=== PATIENT | male | born 1940 | race Two or more races ===

== ENCOUNTER 2022-05-16 08:25 | Inpatient (IN) | payer MEDICARE ==
[~2022-05-16] VITALS: Ht 182.9 cm; Wt 76.2 kg
--- NOTE | 2022-05-16 08:39 | NUR ---
BIB RA 88 FROM [facility] FOR LOW O2 SAT, PT STATED THAT HE WOKE UP THIS MORNING AND FELT LIKE A BOLT OF LIGHTENING HIT HIS CHEST, NONRADIATING DENIES ANY PAIN AT THIS MOMENT. PT SATTING AT 90% ON ROOM AIR, PLACED ON 2L NASAL CANULA, SATTING AT 94%. ATTACHED TO MONITOR, WARM BLANKET PROVDIED. AWAITING MD ORDERS.
--- NOTE | 2022-05-16 08:42 | NUR ---
AT BEDSIDE FOR EVAL.
--- NOTE | 2022-05-16 08:44 | NUR ---
IV ESTABLISHED R AC 20G. LABS COLLECTED AND SENT. EKG DONE AT BEDSIDE.
--- NOTE | 2022-05-16 08:58 | NUR ---
COVID TEST COLLECTED AND SENT
[2022-05-16] MEDS ORDERED: LORAZEPAM 0.5 MG TABLET ONE (08:59)
[2022-05-16] MEDS ORDERED: LORAZEPAM 1 MG TABLET PO ONE (09:00)
[2022-05-16 09:10] LABS: BASOPHILS # (AUTO) 0.1 K/uL (0.0-0.2); BASOPHILS % (AUTO) 0.7 % (0.0-2.0); HEMATOCRIT 37 % (39-51); HEMOGLOBIN 11.8 g/dL (13.5-17.5); LYMPHOCYTES # (AUTO) 0.7 K/uL (0.8-4.8); LYMPHOCYTES % (AUTO) 8.7 % (20.0-44.0); MEAN CORPUSCULAR HGB CONC 33 g/dl (31.0-36.0); MEAN CORPUSCULAR VOLUME 92 fL (80-96); MONOCYTES # (AUTO) 0.9 K/uL (0.1-1.30); MONOCYTES % (AUTO) 10.8 % (2.0-12.0); NEUTROPHILS # (AUTO) 6.3 K/uL (1.8-8.9); NEUTROPHILS % (AUTO) 75.8 % (43.0-81.0); PLATELET COUNT (AUTO) 386 K/uL (150-450); RED BLOOD CELL COUNT(AUTO) 3.98 MIL/uL (4.5-6.0); WHITE BLOOD COUNT (AUTO) 8.4 K/uL (4.3-11.0)
[2022-05-16] MEDS ORDERED: MECL-159 PO (09:23)
[2022-05-16] MEDS ORDERED: MULT-439 PO (09:23)
[2022-05-16] MEDS ORDERED: AMIN887L PO (09:23)
[2022-05-16] MEDS ORDERED: DILT-32 PO (09:23)
[2022-05-16] MEDS ORDERED: PROP15DR EACHEYE (09:23)
[2022-05-16] MEDS ORDERED: POLY17PO4 PO (09:23)
[2022-05-16] MEDS ORDERED: ASCO500C17 PO (09:23)
[2022-05-16] MEDS ORDERED: HYDR-3972 PO (09:23)
[2022-05-16] MEDS ORDERED: ROSU10TA2 PO (09:23)
[2022-05-16] MEDS ORDERED: LIDO30AD10 TP (09:23)
[2022-05-16] MEDS ORDERED: APIX5TAB PO (09:23)
[2022-05-16] MEDS ORDERED: METO-357 PO (09:23)
[2022-05-16] MEDS ORDERED: ACET325T53 PO ×2 (09:23)
[2022-05-16] MEDS ORDERED: CLOP75TA15 PO (09:23)
[2022-05-16] MEDS ORDERED: ERTU5TAB PO (09:23)
[2022-05-16] MEDS ORDERED: COLL30OI TP (09:23)
[2022-05-16] MEDS ORDERED: ASPI-1169 PO (09:23)
[2022-05-16] MEDS ORDERED: BISA10SU11 RC (09:23)
[2022-05-16] MEDS ORDERED: XEROFORM TOP (09:23)
[2022-05-16] MEDS ORDERED: ARGI1POW13 PO (09:23)
[2022-05-16 09:32] LABS: ALANINE AMINOTRANSFERASE 20 U/L (12-78); ALBUMIN 2.5 g/dL (3.4-5.0); ALKALINE PHOSPHATASE 110 U/L (46-116); ASPARTATE AMINOTRANSFERASE 17 U/L (15-37); BILIRUBIN,DIRECT 0.8 mg/dL (0.0-0.2); BILIRUBIN,TOTAL 1.7 mg/dL (0.2-1.0); CARBON DIOXIDE 23 mmol/L (21-32); CHLORIDE 103 mmol/L (98-107); GLUCOSE 99 mg/dL (74-106); POTASSIUM 3.9 mmol/L (3.5-5.1); SODIUM SERUM 137 mmol/L (136-145); TOTAL PROTEIN, SERUM 6.4 g/dL (6.4-8.2); UREA NITROGEN, BLOOD 16 mg/dL (7-18)
[2022-05-16] MEDS ORDERED: FUROSEMIDE 40 MG/4 ML VIAL IV ONE (10:30)
[2022-05-16] MEDS ORDERED: FUROSEMIDE 40 MG/4 ML VIAL ONE (10:31)
[2022-05-16] MEDS ORDERED: LIDOCAINE 2% JEL UROJET 10 ML MM ONE ×2 (10:40→11:00)
--- NOTE | 2022-05-16 10:52 | NUR ---
16FR WOOD CATHETER IN PLACE, URINE YELLOW, 250CC URINE OUTPUT INITIALLY, PT TOLERATED PROCEDURE WELL.
[2022-05-16] MEDS ORDERED: CEFTRIAXONE 1GM BAG (ER ONLY) 50 ML IV ONE (11:57)
[2022-05-16] MEDS ORDERED: AZITHROMYCIN 500 MG in IV D5W 250 ML IV ONE (12:00)
[2022-05-16] MEDS ORDERED: CEFTRIAXONE 1GM BAG (ER ONLY) 1 GM/50 ML PIGGYBACK IV ONE (12:00)
--- NOTE | 2022-05-16 12:13 | NUR ---
Drained yellowish urine total of 1100cc
[2022-05-16] MEDS ORDERED: AMIODARONE 150 MG in IV D5W 100 ML IV ONE (12:30)
[2022-05-16] MEDS ORDERED: AMIODARONE 150 MG/3 ML VIAL IV ONE ×2 (12:30→12:38)
--- NOTE | 2022-05-16 12:46 | NUR ---
CALLED DR. FLORES'S OFFICE ([facility], [facility]) , PER DR. HILL.
--- NOTE | 2022-05-16 12:50 | NUR ---
ROOM 325-1
--- NOTE | 2022-05-16 12:57 | NUR ---
Austin Chris (CARDIOLIGIST) PAGED
--- NOTE | 2022-05-16 13:26 | NUR ---
REPORT GIVEN TO TRISTON KNIGHT
--- NOTE | 2022-05-16 14:09 | NUR ---
REPORT GIVEN TO CHELI RN, PT TRANSFER TO ROOM 105
--- NOTE | 2022-05-16 14:15 | NUR ---
PATIENT ADMITTED TO THE [facility], CAME FROM [facility], PRIMARY C/O CHEST PAIN, ALERT, ORIENTED X3. PT NON AMBULATORY, HAS EXTERNAL WEARABLE CARDIAC DEFIBRILLATOR, IV ACCESS RIGHT AC, FLUSHES WELL. WOOD CATHETER IN PLACE, 4 LITERS OF URINE COLLECTED UPON ADMISSION. SKIN BREAKDOWN UPPER BACK AND COCCYX PRESSURE WOUND PICTURED AND DOCUMENTED, LOWER BACK WOUND SIZE IS 12CM X 12CM, WOUND CARE CONSULT REQUESTED, DRESSING CHANGED. SAFETY MEASURES IMPLEMENTED, BED LOCKED AND IN LOWEST POSITION, CALL LIGHT WITHIN REACH, WILL CONTINUE TO MONITOR.
[2022-05-16] MEDS: AMIODARONE 450 MG in IV D5W 241 ML IV PRN ×6 (14:49→23:07)
[2022-05-16] MEDS ORDERED: ACETAMINOPHEN 325 MG TABLET PO PRN (15:00)
[2022-05-16] MEDS ORDERED: Z GUARD REMEDY 4 OZ OINT TP PRN (15:00)
[2022-05-16] MEDS ORDERED: MAGNESIUM HYDROXIDE 30 ML UDC PO PRN (15:00)
[2022-05-16] MEDS ORDERED: ONDANSETRON HCL/PF 4 MG/2 ML VIAL IVP PRN (15:00)
--- NOTE | 2022-05-16 15:05 | NUR ---
VITAL SIGNS: B/P 114/67; HR 77; RESP 20; O2 SAT97%; TEMP 97.8. AMIODARONE DRIP STARTED AT 15:00, AT RATE 33.33ML PER HOUR, HAS TO BE TITRATED AT 21:00 AND SLOWED DOWN TO 16ML PER HOUR.
[2022-05-16 16:00] VITALS: BP 114/67
[2022-05-16] MEDS ORDERED: MECLIZINE HCL 25 MG TABLET PO PRN (16:30)
[2022-05-16] MEDS ORDERED: DEXTROSE 50%-WATER 50 ML DISP.SYRIN IV PRN (16:30)
[2022-05-16] MEDS ORDERED: BISACODYL SUPP (10 MG) 10 MG/SUPP.RECT SUPP.RECT RC PRN (16:30)
[2022-05-16] MEDS ORDERED: POLYETHYLENE GLYCOL 3350 17 GM POWD.PACK PO PRN (16:30)
[2022-05-16] MEDS ORDERED: Medication Not On Formulary EA (Arginine/Ascorbate Sod/Vite AC (Arginaid Powder) 1 EACH) PO SCH (17:00)
[2022-05-16] MEDS: BLOOD SUGAR DIAGNOSTIC 1 EACH STRIP IN SCH ×2 (17:25→22:19)
[2022-05-16] MEDS: PROSOURCE / PROSTAT (PYXIS) 30 ML UDC PO SCH (17:25)
--- NOTE | 2022-05-16 19:15 | NUR ---
[facility] NURSE CLOSING NOTE PT ASLEEP IN BED, O2 VIA NC AT 3L, NO SOB, NO DISTRESS NOTED. SAFETY MEASURES MAINTAINED. BED LOCKED AND IN LOWEST POSITION, SIDE RAILS UP X2 CALL LIGHT IN EASY REACH FOR HELP. WILL MONITOR ACCORDINGLY. ENDORSED TO RN INTEGRITY RN FOR CONTINUITY OF CARE.
[2022-05-16 20:00] VITALS: BP 130/56
--- NOTE | 2022-05-16 20:00 | NUR ---
lizett rn notes Amiodarone drip At 2100hrs is titrated to 0.5mg as ordered.will continue to monitor pts.
--- NOTE | 2022-05-16 20:00 | NUR ---
[facility] NURSE opening NOTE RECEIVED PT AWAKE A/O X 4 , O2 VIA NC AT 3L SATING 955 V/S STABLE AFEBRILE NO SOB NO DISTRESS NOTED. , PTS ON AMIODARONE DRIP AI 1 MG X 6HRS ON PROGRESS DUE AT 9PM NO ASE OF MEDICATION NOTED. SAFETY MEASURES MAINTAINED. BED LOCKED AND IN LOWEST POSITION, SIDE RAILS UP X2 CALL LIGHT IN EASY REACH FOR HELP. WILL MONITOR ACCORDINGLY.pts also with life vest as ordered; will continue to monitor
[2022-05-16] MEDS: HEPARIN SODIUM, PORCINE 5000 UNITS/1 ML VIAL SQ SCH (20:39)
[2022-05-16] MEDS: ATORVASTATIN 10 MG TABLET PO SCH (21:16)
[2022-05-16] MEDS: INSULIN REGULAR, HUMAN 100 UNIT/ML 3 ML VIAL SQ PRN (22:22)
[2022-05-17] VITALS: BP 103/64
[2022-05-17] MEDS: HYDROCODONE/APAP 5/325MG TABLET PO PRN ×2 (02:21→09:52)
[2022-05-17 04:00] VITALS: BP 100/65
--- NOTE | 2022-05-17 05:19 | NUR ---
POLE FRAME CONSTRUCTION WORKER NOTES, PT ASLEEP IN BED, O2 VIA NC AT 3L, NO SOB, NO DISTRESS NOTED. SAFETY MEASURES MAINTAINED. BED LOCKED AND IN LOWEST POSITION, SIDE RAILS UP X2 CALL LIGHT REMAINS ON AMIO DRIP AT 0.5 MG ORDERED.WILL MONITOR ACCORDINGLY. ENDORSED TO DAY SHIFT RN FOR CONTINUITY OF CARE.
[2022-05-17 07:07] LABS: CALCIUM, SERUM 8.4 mg/dL (8.5-10.1); CREATININE 0.8 mg/dL (0.6-1.3); MAGNESIUM 1.9 mg/dL (1.8-2.4); PHOSPHORUS 3.5 mg/dL (2.5-4.9)
[2022-05-17 07:11] LABS: BASOPHILS # (AUTO) 0.1 K/uL (0.0-0.2); BASOPHILS % (AUTO) 1.1 % (0.0-2.0); HEMATOCRIT 32 % (39-51); HEMOGLOBIN 10.7 g/dL (13.5-17.5); LYMPHOCYTES # (AUTO) 0.7 K/uL (0.8-4.8); LYMPHOCYTES % (AUTO) 8.3 % (20.0-44.0); MEAN CORPUSCULAR HGB CONC 34 g/dl (31.0-36.0); MEAN CORPUSCULAR VOLUME 91 fL (80-96); MONOCYTES # (AUTO) 0.9 K/uL (0.1-1.30); MONOCYTES % (AUTO) 10.4 % (2.0-12.0); NEUTROPHILS # (AUTO) 6.7 K/uL (1.8-8.9); NEUTROPHILS % (AUTO) 76.2 % (43.0-81.0); PLATELET COUNT (AUTO) 353 K/uL (150-450); RED BLOOD CELL COUNT(AUTO) 3.51 MIL/uL (4.5-6.0); WHITE BLOOD COUNT (AUTO) 8.8 K/uL (4.3-11.0)
--- NOTE | 2022-05-17 07:11 | NUR ---
RN OPEN NOTE RECEIVED PATIENT AT BED AWAKE , ALERT, ORIENTED X3. PATIENT NON AMBULATORY BED BOUND , HAS EXTERNAL WEARABLE CARDIAC DEFIBRILLATOR, IV ACCESS RIGHT AC, FLUSHES WELL. AMIODARON DRIP RUNNING AT 0.[address] DARNING CLEAR YELLOW URINE SKIN BREAKDOWN UPPER BACK AND COCCYX PRESSURE WOUND SAFETY MEASURES IMPLEMENTED, BED LOCKED AND IN LOWEST POSITION, CALL LIGHT WITHIN REACH, WILL CONTINUE TO MONITOR.
[2022-05-17 07:17] LABS: THYROID STIMULATING HORMONE 3.141 uIU/mL (0.358-3.74)
[2022-05-17] MEDS ORDERED: FUROSEMIDE 40 MG/4 ML VIAL IV SCH (07:30)
[2022-05-17] MEDS: BLOOD SUGAR DIAGNOSTIC 1 EACH STRIP IN SCH ×4 (07:55→20:57)
[2022-05-17] MEDS: PANTOPRAZOLE 40 MG TABLET.DR PO SCH (07:56)
[2022-05-17] MEDS: POTASSIUM CHLORIDE 20 MEQ TAB.PRT.SR PO SCH ×2 (07:58→08:37)
[2022-05-17 08:00] VITALS: BP 112/67
--- NOTE | 2022-05-17 08:03 | NUR ---
WOUND CARE CONSULT: PT EATING BREAKFAST AT THIS TIME. REVIEWED CHART, NURSING DOCUMENTATION AND PHOTOS WHICH INDICATE DEEP TISSUE INJURIES TO SACRUM EXTENDING TO BUTTOCKS AND TO LEFT HIP AREA, PRESENT ON ADMISSION. PT IS ON AMAYA ISOFLEX LOW AIRLOSS BED. PT HAS LIFE VEST. RECOMMENDATIONS MADE FOR SKIN PROTECTION. DISCUSSED WITH NURSING STAFF. SURGICAL CONSULT CALLED TO DR KOHANZADEH. YEAGER IN AGREEMENT WITH PLAN OF CARE.
[2022-05-17] MEDS: THERAHONEY GEL 1.5 OZ TUBE TP SCH (08:25)
[2022-05-17] MEDS: ASCORBIC ACID 500 MG TABLET PO SCH (08:25)
[2022-05-17] MEDS: LIDOCAINE 5% (PATCH) 1 EA PATCH TP SCH (08:25)
[2022-05-17] MEDS: MULTIVIT W/MINERALS 1 TAB TABLET PO SCH (08:25)
[2022-05-17] MEDS: CLOPIDOGREL BISULFATE 75 MG TABLET PO SCH (08:25)
[2022-05-17] MEDS: METOPROLOL SUCCINATE 50 MG TAB.SR.24H PO SCH (08:26)
[2022-05-17] MEDS: ASPIRIN 81 MG TAB.CHEW PO SCH (08:26)
[2022-05-17] MEDS: HEPARIN SODIUM, PORCINE 5000 UNITS/1 ML VIAL SQ SCH ×2 (08:28→20:32)
[2022-05-17] MEDS: PROSOURCE / PROSTAT (PYXIS) 30 ML UDC PO SCH ×2 (08:38→16:27)
[2022-05-17] MEDS ORDERED: XEROFORM TOP SCH (09:00)
[2022-05-17] MEDS ORDERED: ERTUGLIFLOZIN PIDOLATE 5 MG PO SCH (09:00)
--- NOTE | 2022-05-17 09:35 | NUR ---
WOUND CARE: PT SEEN FOR SKIN ASSESSMENT AND NOTED TO HAVE DRY BROWN LESIONS TO LEFT PLANTAR FOOT (NONTENDER), LEFT GROIN SUTURE, DEEP TISSUE INJURIES TO SACRUM AND TO MIDBACK AREA, ALL PRESENT ON ADMISSION. SURGICAL CONSULT WAS CALLED TO DR CHOUDHURY. PT STATES HAS BEEN HAVING PANIC ATTACKS. DISCUSSED WITH NURSING STAFF AND BANKING MANAGERWen YEAGER IN AGREEMENT WITH PLAN OF CARE.
[2022-05-17] MEDS: INSULIN REGULAR, HUMAN 100 UNIT/ML 3 ML VIAL SQ PRN ×2 (11:16→20:56)
[2022-05-17 12:00] VITALS: BP 120/65
[2022-05-17] MEDS: SOD FERRIC GLUC 125 MG in IV NS 0.9% 100 ML IV SCH (13:27)
[2022-05-17 16:53] VITALS: BP 100/60
--- NOTE | 2022-05-17 19:03 | NUR ---
[facility] NURSE CLOSING NOTE PT ASLEEP IN BED, O2 VIA NC AT 3L, NO SOB, NO DISTRESS NOTED. SAFETY MEASURES MAINTAINED.FOLLEY CATH IN PLACE DRAINING CLEAR YELLOW URINE , IV AVSESS RAC 20 G , LFA 20G BED LOCKED AND IN LOWEST POSITION, SIDE RAILS UP X2 CALL LIGHT IN EASY REACH FOR HELP. ALL MEDICATIONS WERE ADMINISTERED , ALL NEEDED WERE MET ENDORSED TO SETTLEMENT WORKER RN FOR CONTINUITY OF CARE.
[2022-05-17 20:00] VITALS: BP 99/54
[2022-05-17] MEDS: AMIODARONE HCL 200 MG TABLET PO SCH (20:33)
[2022-05-17] MEDS: ATORVASTATIN 10 MG TABLET PO SCH (20:34)
[2022-05-18] VITALS: BP 103/55
[2022-05-18 04:00] VITALS: BP 126/71
--- NOTE | 2022-05-18 04:47 | NUR ---
Closing Notes: alert and orientated X4 will make his needs known LIFE VEST ON on the monitor SR HR 72 dick drainage kevin in color patient is anxious at times, states he worries about the Life Vest and wants to keep it working unable to assist self to reaching for water will ask for assist no chest pain or sob this 12 hours on O2 N/C 3 liters SATS 92 -95%
[2022-05-18 07:16] LABS: BASOPHILS # (AUTO) 0.1 K/uL (0.0-0.2); EOSINOPHILS % (AUTO) 6.6 % (0.0-6.0); HEMATOCRIT 34 % (39-51); HEMOGLOBIN 11.4 g/dL (13.5-17.5); LYMPHOCYTES # (AUTO) 0.7 K/uL (0.8-4.8); MEAN CORPUSCULAR HGB CONC 34 g/dl (31.0-36.0); MEAN CORPUSCULAR VOLUME 91 fL (80-96); MONOCYTES # (AUTO) 0.7 K/uL (0.1-1.30); MONOCYTES % (AUTO) 9.4 % (2.0-12.0); NEUTROPHILS # (AUTO) 5.7 K/uL (1.8-8.9); PLATELET COUNT (AUTO) 397 K/uL (150-450); RED BLOOD CELL COUNT(AUTO) 3.73 MIL/uL (4.5-6.0); WHITE BLOOD COUNT (AUTO) 7.7 K/uL (4.3-11.0)
[2022-05-18 07:22] LABS: ALBUMIN 2.2 g/dL (3.4-5.0); BILIRUBIN,TOTAL 0.9 mg/dL (0.2-1.0); CALCIUM, SERUM 8.9 mg/dL (8.5-10.1); CREATININE 0.7 mg/dL (0.6-1.3); MAGNESIUM 2.1 mg/dL (1.8-2.4); PHOSPHORUS 3.6 mg/dL (2.5-4.9)
--- NOTE | 2022-05-18 07:30 | NUR ---
RADIATION PROTECTION TECHNICIAN AM NOTES PT AWAKE, ORIENTED X 4, WITH O2 VIA NC AT 3L, O2 SAT >95%, NO SOB, NO DISTRESS, RESPIRATION UNLABORED. SINUS RHYTHM HR 75, DENIES PAIN AT THIS TIME. RAC 20 G , LFA 22G RT WRIST G22 IV ACCESS, ALL LUSHES WELL, ALL SITES LEAR. WOOD CATH IN PLACE DRAINING CLEAR YELLOW URINE , BED LOCKED AND IN LOWEST POSITION, SIDE RAILS UP X2 CALL LIGHT IN EASY REACH FOR HELP. SEE NURSING FLOW SHEET FOR SKIN ISSUES. POC DISCUSSED, ALL NEEDS ANTICIPATED, SAFETY MEASURES IN PLACE, BED LOW LOCKED, SR UP X2. CALL LIGHT WITHIN REACH, WILL CONT TO MONITOR.
[2022-05-18] MEDS: BLOOD SUGAR DIAGNOSTIC 1 EACH STRIP IN SCH ×2 (07:58→11:37)
[2022-05-18] MEDS: PANTOPRAZOLE 40 MG TABLET.DR PO SCH (07:58)
[2022-05-18 08:00] VITALS: BP 140/60
[2022-05-18] MEDS: MULTIVIT W/MINERALS 1 TAB TABLET PO SCH (08:18)
[2022-05-18] MEDS: ASCORBIC ACID 500 MG TABLET PO SCH (08:18)
[2022-05-18] MEDS: LIDOCAINE 5% (PATCH) 1 EA PATCH TP SCH (08:19)
[2022-05-18] MEDS: ASPIRIN 81 MG TAB.CHEW PO SCH (08:19)
[2022-05-18] MEDS: CLOPIDOGREL BISULFATE 75 MG TABLET PO SCH (08:20)
[2022-05-18] MEDS: METOPROLOL SUCCINATE 50 MG TAB.SR.24H PO SCH (08:20)
[2022-05-18] MEDS: THERAHONEY GEL 1.5 OZ TUBE TP SCH (08:21)
[2022-05-18] MEDS: AMIODARONE HCL 200 MG TABLET PO SCH (08:21)
[2022-05-18] MEDS: PROSOURCE / PROSTAT (PYXIS) 30 ML UDC PO SCH (08:22)
[2022-05-18] MEDS: HEPARIN SODIUM, PORCINE 5000 UNITS/1 ML VIAL SQ SCH (08:23)
--- NOTE | 2022-05-18 09:30 | NUR ---
RN NOTES DUE MEDS GIVEN
[2022-05-18] MEDS: INSULIN REGULAR, HUMAN 100 UNIT/ML 3 ML VIAL SQ PRN (11:42)
[2022-05-18 12:00] VITALS: BP 136/62
--- NOTE | 2022-05-18 13:05 | NUR ---
RN NOTES SHEKHAR CONNOR DIRECTOR POST NOTIFIED, PATIENT C/O SHORTNESS OF BREATH OFF OXYGEN AND CHEST PAIN. PLACED BACK ON 2L O2 NASAL CANULA
--- NOTE | 2022-05-18 13:23 | NUR ---
RN NOTES SHEKHAR CONNOR DISC INSPECTOR AT BEDSIDE EARLIER ORDERED TO REMOVE WOOD. 1100 ML OUTPUT
--- NOTE | 2022-05-18 14:00 | NUR ---
RN NOTES ATTEMPTED TO CALL FACILITY FOR REPORT, NO ONE AVAILABLE. CALLED 2ND TIME, AND LEFT PHONE NUMBER IF THEY ARE READY TO RECEIVE THE REPORT ANJELICA MARINE DESIGNER NOTIFIED.
[2022-05-18] MEDS: SOD FERRIC GLUC 125 MG in IV NS 0.9% 100 ML IV SCH (14:07)
--- NOTE | 2022-05-18 14:22 | NUR ---
RN NOTES BLADDER SCAN DONE WITH 217 ML URINE. NO OUTPUT YET. PER SHEKHAR CONNOR HYDRAULIC BLOCKER, PUT BACK WOOD CATHETER
--- NOTE | 2022-05-18 14:32 | NUR ---
RN NOTES REPORT GIVEN TO NURSE FACILITY STAFF. DIRECTOR [facility] TIME AT 1538
[2022-05-18] MEDS ORDERED: ALPR0.25 PO (14:52)
[2022-05-18] MEDS ORDERED: AMIO200T5 PO (14:52)
--- NOTE | 2022-05-18 16:11 | NUR ---
THRESHING MACHINE OPERATOR NOTES PATIENT DISCHARGED TO [facility] TODAY PER MD IN STABLE CONDITION. PROVIDED DC INSTRUCTIONS, MED RECON AND HEALTH TEACHINGS. ALL IV ACCESS REMOVED, RT WRIST, RT AC AND LEFT FA. ALL CATH COMPLETE, APPLIED PRESSURES AND DRESSING,NO BLEEDING. WOOD CATH IN PLACE, DRAINING YELLOW COLORED CLEAR URINE. LIFE VEST IN PLACE, PT TO FOLLOW UP WITH PCP IN 1 WEEK OR PER FACILITY PROTOCOL. ALL BELONGINGS CHECKED AND RETURNED. ALL PAPERWORKS SIGNED. PICKED UP BY 2 AMBULANCE CREW AND WILL TRANSPORT PATIENT TO FACILITY. Addendum: 05/18/22 at 1615 by NORM ROBERTSON RN ADDENDUM PICTURE OF SKIN ISSUES TAKEN AND PLACED INSIDE THE CHART
== END 2022-05-18 16:14 | DRG 308 ==
LOC: ER 08:36 → TELE 13:07 → TELE1 14:09 → TELE-TD 15:28 → TELE1 05-17 16:06
PROVIDERS: ADMIT Nurse Practitioner Family; ATTEND Nurse Practitioner Family
DX: I48.91 Unspecified atrial fibrillation (principal); I50.23 Acute on chronic systolic (congestive) heart failure; J96.01 Acute respiratory failure with hypoxia; E44.0 Moderate protein-calorie malnutrition; J98.11 Atelectasis; J90 Pleural effusion, not elsewhere classified; I47.20 Ventricular tachycardia, unspecified; Z20.822 Contact with and (suspected) exposure to COVID-19; I25.10 Atherosclerotic heart disease of native coronary artery without angina pectoris; I25.2 Old myocardial infarction; Z79.899 Other long term (current) drug therapy; Z79.02 Long term (current) use of antithrombotics/antiplatelets; Z79.82 Long term (current) use of aspirin; Z79.01 Long term (current) use of anticoagulants; Z95.5 Presence of coronary angioplasty implant and graft; Z86.16 Personal history of COVID-19; Z85.46 Personal history of malignant neoplasm of prostate; E11.9 Type 2 diabetes mellitus without complications; D64.9 Anemia, unspecified; E80.6 Other disorders of bilirubin metabolism; E88.09 Other disorders of plasma-protein metabolism, not elsewhere classified; K80.20 Calculus of gallbladder without cholecystitis without obstruction; L89.156 Pressure-induced deep tissue damage of sacral region; L89.326 Pressure-induced deep tissue damage of left buttock; L89.316 Pressure-induced deep tissue damage of right buttock; L89.136 Pressure-induced deep tissue damage of right lower back; L89.146 Pressure-induced deep tissue damage of left lower back; L89.116 Pressure-induced deep tissue damage of right upper back; L89.126 Pressure-induced deep tissue damage of left upper back; F03.90 Unspecified dementia, unspecified severity, without behavioral disturbance, psychotic disturbance, mood disturbance, and anxiety
CPT/HCPCS: 36415; 71045-TC; 76700-TC; 80048-TC; 80053-TC; 80076-TC; 82728-TC; 82962-TC; 83540-TC; 83735-TC; 83880; 84100-TC; 84443-TC; 84484-TC; 85025-TC; 85730-TC; 87081-TC; 93307-TC; C9803; G0378; J0282; J0456; J0696; J1644; J1815; J1940; J2916; J3490; J7030; J7050; J7060

== ENCOUNTER 2022-05-20 05:21 | Inpatient (IN) | payer MEDICARE ==
[~2022-05-20] VITALS: Ht 185.4 cm; Wt 81.6 kg
[~2022-05-20 05:21] MED LIST: ACET325T53 PO; ALPR0.25 PO; AMIN887L PO; AMIO200T5 PO; APIX5TAB PO; ARGI1POW13 PO; ASCO500C17 PO; ASPI-1169 PO; BISA10SU11 RC; CLOP75TA15 PO; COLL30OI TP; ERTU5TAB PO; HYDR-3972 PO; LIDO30AD10 TP; MECL-159 PO; METO-357 PO; MULT-439 PO; POLY17PO4 PO; PROP15DR EACHEYE; ROSU10TA2 PO; XEROFORM TOP
--- NOTE | 2022-05-20 05:31 | NUR ---
BIB88 FROM [facility] C/O EXTERNAL PACEMAKER MALFUNCTION HAVING ALARM ON & OFF. PT DENIES COMPLAINTS. PT A/OX4. TOLERATING R/A WELL WITH NO RESP DISTRESS. CONNECTED PT TO POX AND MONITOR. SAFETY MEASURES IN PLACE.
--- NOTE | 2022-05-20 06:19 | NUR ---
RAC #18G S/L BLOOD COLLECTED AND SENT TO LAB
--- NOTE | 2022-05-20 06:27 | NUR ---
DROP COUNT ASSOCIATE AT PT'S BEDSIDE
[2022-05-20 06:42] LABS: BASOPHILS # (AUTO) 0.1 K/uL (0.0-0.2); BASOPHILS % (AUTO) 1.3 % (0.0-2.0); EOSINOPHILS % (AUTO) 8.2 % (0.0-6.0); HEMATOCRIT 37 % (39-51); HEMOGLOBIN 11.9 g/dL (13.5-17.5); LYMPHOCYTES # (AUTO) 0.8 K/uL (0.8-4.8); LYMPHOCYTES % (AUTO) 11.6 % (20.0-44.0); MEAN CORPUSCULAR HGB CONC 33 g/dl (31.0-36.0); MEAN CORPUSCULAR VOLUME 91 fL (80-96); MONOCYTES # (AUTO) 0.5 K/uL (0.1-1.30); MONOCYTES % (AUTO) 8.1 % (2.0-12.0); NEUTROPHILS # (AUTO) 4.8 K/uL (1.8-8.9); NEUTROPHILS % (AUTO) 70.8 % (43.0-81.0); PLATELET COUNT (AUTO) 414 K/uL (150-450); RED BLOOD CELL COUNT(AUTO) 4.03 MIL/uL (4.5-6.0); WHITE BLOOD COUNT (AUTO) 6.8 K/uL (4.3-11.0)
[2022-05-20 06:50] LABS: CREATININE 0.9 mg/dL (0.6-1.3); POTASSIUM 4.6 mmol/L (3.5-5.1)
--- NOTE | 2022-05-20 07:01 | NUR ---
TRIED CALLING Scayl TO TROUBLE SHOOT THE DEVICE. NOBODY ANSWERING CALL.
--- NOTE | 2022-05-20 08:20 | NUR ---
COVID SWAB COLLECTED AND SENT TO LAB
[2022-05-20] MEDS ORDERED: BALS5OIN TP (08:33)
[2022-05-20] MEDS ORDERED: POVI3780 TP (08:33)
[2022-05-20] MEDS ORDERED: ASCO500T10 PO (08:33)
[2022-05-20] MEDS ORDERED: AMIO200T5 PO (08:33)
[2022-05-20] MEDS ORDERED: ALPR0.25 PO (08:33)
[2022-05-20] MEDS ORDERED: PETR113O TP (08:33)
[2022-05-20] MEDS ORDERED: ONDANSETRON HCL/PF 4 MG/2 ML VIAL IVP PRN (09:00)
[2022-05-20] MEDS ORDERED: Z GUARD REMEDY 4 OZ OINT TP PRN (09:00)
[2022-05-20] MEDS ORDERED: MAGNESIUM HYDROXIDE 30 ML UDC PO PRN (09:00)
[2022-05-20] MEDS ORDERED: ACETAMINOPHEN 325 MG TABLET PO PRN (09:00)
--- NOTE | 2022-05-20 09:40 | NUR ---
GOT BED 325-1 ADMITTING INFORMED.
--- NOTE | 2022-05-20 09:50 | NUR ---
ATTEMPTED TO GIVE REPORT, NO ANSWER FROM THE NURSE.
--- NOTE | 2022-05-20 09:58 | NUR ---
REPORT GIVEN TO KERRY KNIGHT.
--- NOTE | 2022-05-20 10:32 | NUR ---
RECEIVED PATIENT FROM ED. PATIENT IS ALERT, ORIENTED X 3. NO C/O CHEST PAIN OR DISCOMFORT AT THIS TIME. ON RA WITH OXYGEN SATURATION OF 97%. PLACED ON TELE MONITOR WITH HR OF 59. IV ON RIGHT AC INTACT, NO INFILTRATION NOTED. BODY CHECK DONE WITH PHOTOS PLACED ON CHART. BELONGINGS LIST DONE BY [facility]. ALL SAFETY MEASURES IN PLACE. BED LOCKED AND IN LOWEST POSITION WITH BED ALARM ON. CALL LIGHT WITHIN REACH. WILL CONTINUE TO MONITOR PATIENT THROUGHOUT SHIFT. . V/S TAKEN BP 116/71, PULSE 89, TEMP 99.0 RESPIRATION RATE 20.
--- NOTE | 2022-05-20 10:32 | NUR ---
RN NOTE- ADMISSION FOR MALFUNCTION PACEMAKER.
[2022-05-20 12:00] VITALS: BP 140/68
--- NOTE | 2022-05-20 14:17 | NUR ---
CALLED MITZY CASTRO @ , SPOKE WITH AGNES AND REQUESTED FOR SOMEONE TO PLEASE COME TO THE FACILITY TO DOWNLOAD PATIENT'S DEVICE. WILL SEND SOMEONE LATER
[2022-05-20 16:00] VITALS: BP 146/71
[2022-05-20] MEDS ORDERED: HYDROCODONE/APAP 5/325MG TABLET PO PRN (16:30)
[2022-05-20] MEDS ORDERED: POLYETHYLENE GLYCOL 3350 17 GM POWD.PACK PO PRN (16:30)
[2022-05-20] MEDS ORDERED: ALPRAZOLAM 0.25 MG TABLET PO PRN (16:30)
[2022-05-20] MEDS ORDERED: BISACODYL SUPP (10 MG) 10 MG/SUPP.RECT SUPP.RECT RC PRN (16:30)
[2022-05-20] MEDS: TAMSULOSIN 0.4 MG CAP.SR.24H PO SCH ×2 (16:35→21:21)
[2022-05-20] MEDS: APIXABAN 5 MG TABLET PO SCH (16:43)
[2022-05-20] MEDS: AMIODARONE HCL 200 MG TABLET PO SCH (16:43)
[2022-05-20] MEDS ORDERED: Medication Not On Formulary EA (Arginine/Ascorbate Sod/Vite AC (Arginaid Powder) 1 EACH) PO SCH (17:00)
--- NOTE | 2022-05-20 17:45 | NUR ---
REINALDO FROM [employer] VEST CAME BY AND CHECKED THE PATIENT'S VEST AND STATED THAT EVERYTHING IS CONNECTED AND JUST NEEDS TO CHANGE THE BATTERY EVERY 12 HOURS
--- NOTE | 2022-05-20 18:41 | NUR ---
[place] LOCATION MANAGER CLOSING NOTES: PATIENT IN BED, AWAKE ALERT, ORIENTED X 3. NO RESPIRATORY DISTRESS NOTED THROUGHOUT SHIFT. ON SR WITH HR OF 78 PER TELE MONITOR. IV ON RIGHT AC INTACT, NO INFILTRATION NOTED. ALL SAFETY MEASURES IMPLEMENTED. LIFE VEST ON. NO C/O CHEST PAIN OR DISCOMFORT THROUGHOUT SHIFT. BED LOCKED AND IN LOWEST POSITION WITH BED ALARM ON. CALL LIGHT WITHIN REACH. WILL ENDORSE TO INCOMING NURSE FOR CONTINUITY OF CARE.
--- NOTE | 2022-05-20 19:42 | NUR ---
RN OPENING NOTE; RECEIVED PT IN BED AAOX4 ABLE TO MAKE NEEDS KNOWN,ON RM AIR RENARD WELL SATTING 99%,NO SOB/DISTRESS NOTED,NO COMPLAIN OF PAIN/DISCOMFORT AT THIS TIME,IV ACCESS RAC 18G SL,PATENT AND INTACT,SAFETY MEASURE IN PLACE,CALL LIGHT WITHIN REACH,WILL CONTINUE TO MONITOR,
[2022-05-20 20:00] VITALS: BP 136/64
[2022-05-20] MEDS ORDERED: ATORVASTATIN 40 MG TABLET PO SCH (22:00)
--- NOTE | 2022-05-20 23:33 | NUR ---
RN NOTE; BLADDER SCAN WAS INITIATED NOTED 380ML,STRAIGHT CATH DONE OUTPUT 320ML,PT RENARD WELL,NO BLEEDING NOTED.
[2022-05-21] VITALS: BP 119/65
[2022-05-21 04:00] VITALS: BP 109/67
--- NOTE | 2022-05-21 05:44 | NUR ---
RN NOTE; BLADDER SCAN WAS INITIATED NOTED 190ML,NO NEED STRAIGHT CATH.
--- NOTE | 2022-05-21 06:35 | NUR ---
RN CLOSING NOTE; PT IN BED AAOX3 ABLE TO MAKE NEEDS KNOWN,ON RM AIR RENARD WELL SATTING 98%,NO SOB/DISTRESS NOTED,NO COMPLAIN OF PAIN/DISCOMFORT DURING SHIFT,DUE MEDS GIVEN ORDER,ALL NEEDS ATTENDED,2300 BLADDER SCAN WAS DONE URINE WAS 380ML,STRAIGHT CATH DONE OUTPUT 320ML,NO BLEEDING NOTED,IV ACCESS RAC 18G SL,PATENT AND INTACT,SAFETY MEASURE IN PLACE,CALL LIGHT WITHIN REACH,WILL ENDORSED TO NEXT SHIFT.
[2022-05-21 06:51] LABS: CARBON DIOXIDE 23 mmol/L (21-32); CHLORIDE 102 mmol/L (98-107); CREATININE 0.8 mg/dL (0.6-1.3); GLUCOSE 100 mg/dL (74-106); MAGNESIUM 2.3 mg/dL (1.8-2.4); PHOSPHORUS 3.2 mg/dL (2.5-4.9); POTASSIUM 4.2 mmol/L (3.5-5.1); SODIUM SERUM 134 mmol/L (136-145); UREA NITROGEN, BLOOD 15 mg/dL (7-18)
[2022-05-21 06:54] LABS: BASOPHILS # (AUTO) 0.1 K/uL (0.0-0.2); BASOPHILS % (AUTO) 1.7 % (0.0-2.0); EOSINOPHILS % (AUTO) 8.3 % (0.0-6.0); HEMATOCRIT 38 % (39-51); HEMOGLOBIN 12.3 g/dL (13.5-17.5); LYMPHOCYTES % (AUTO) 11.8 % (20.0-44.0); MEAN CORPUSCULAR HGB CONC 33 g/dl (31.0-36.0); MEAN CORPUSCULAR VOLUME 92 fL (80-96); MONOCYTES # (AUTO) 0.6 K/uL (0.1-1.30); MONOCYTES % (AUTO) 7.8 % (2.0-12.0); NEUTROPHILS # (AUTO) 5.7 K/uL (1.8-8.9); NEUTROPHILS % (AUTO) 70.4 % (43.0-81.0); PLATELET COUNT (AUTO) 453 K/uL (150-450); RED BLOOD CELL COUNT(AUTO) 4.11 MIL/uL (4.5-6.0)
[2022-05-21] MEDS ORDERED: PANTOPRAZOLE 40 MG TABLET.DR PO SCH (07:30)
--- NOTE | 2022-05-21 07:38 | NUR ---
WOUND CARE CONSULT: PT REFUSED SKIN ASSESSMENT. PT KNOWN TO HAVE MIDBACK DEEP TISSUE INJURY, DEEP TISSUE INJURY TO SACRUM WHICH IS IN EVOLUTION AND DRY WOUNDS TO LEFT LOWER EXTREMITY, PRESENT ON ADMISSION. DR CHOUDHURY AND DR QURESHI CALLED FOR SURGICAL AND DPM CONSULTS. DISCUSSED SKIN PROTECTION WITH NURSING STAFF. MD IN AGREEMENT WITH PLAN OF CARE.
[2022-05-21 08:00] VITALS: BP 140/64
--- NOTE | 2022-05-21 08:11 | NUR ---
RN OPENING NOTE PATIENT AWAKE IN BED RESTING, A/O X 3. NO S/S OF PAIN NOTED AT THIS TIME. ON 2L OXYGEN, NO SHORTNESS OF BREATH, NO DISTRESS NOTED. IV ACCESS RAC #18G, INTACT, PATENT AND FLUSHING WELL. PATIENT ON EXTERNAL SUPERVISOR PARTICLEBOARD WITH CURRENT READING OF SR WITH PVC AND HR OF 73, NO CARDIAC DISTRESS NOTED. FALL AND SAFETY MEASURES IN PLACE, BED ALARM ON, BED IN LOW AND LOCK POSITION, CALL LIGHT AND TABLE WITHIN EASY REACH, SIDE RAILS UP X2. WILL CONTINUE TO MONITOR.
[2022-05-21] MEDS ORDERED: THERAHONEY GEL 1.5 OZ TUBE TP SCH (09:00)
[2022-05-21] MEDS ORDERED: METOPROLOL SUCCINATE 50 MG TAB.SR.24H PO SCH (09:00)
[2022-05-21] MEDS ORDERED: CLOPIDOGREL BISULFATE 75 MG TABLET PO SCH (09:00)
[2022-05-21] MEDS ORDERED: ASCORBIC ACID 500 MG TABLET PO SCH (09:00)
[2022-05-21] MEDS ORDERED: ASPIRIN 81 MG TAB.CHEW PO SCH (09:00)
[2022-05-21] MEDS ORDERED: MULTIVIT W/MINERALS 1 TAB TABLET PO SCH (09:00)
[2022-05-21] MEDS ORDERED: PROSOURCE / PROSTAT (PYXIS) 30 ML UDC PO SCH ×2 (09:00→17:00)
[2022-05-21] MEDS: AMIODARONE HCL 200 MG TABLET PO SCH ×2 (09:02→17:33)
[2022-05-21] MEDS: APIXABAN 5 MG TABLET PO SCH ×2 (09:03→17:33)
--- NOTE | 2022-05-21 11:00 | NUR ---
RN NOTE PATIENT LIFE-VEST WAS REMOVED REQUESTED PER DOCTOR. LIFE VEST IS AT PATIENT BED SIDE, IT WAS PLACED IN A BAG. CHARGE NURSE AWARE.
[2022-05-21 12:00] VITALS: BP 142/67
--- NOTE | 2022-05-21 12:00 | NUR ---
RN NOTE PATIENT HAVE A WOUND ON HIS BACK, PICTURE WAS TAKEN, AND WOUND CARE IMPLEMENTED. WOUND CARE NURSE AND CHARGE NURSE AWARE. WILL CONTINUE TO MONITOR.
[2022-05-21 16:00] VITALS: BP 110/66
[2022-05-21] MEDS ORDERED: ENSURE ENLIVE 237 ML LIQUID (VANILLA) PO SCH (17:00)
[2022-05-21 17:33] VITALS: BP 110/66
[2022-05-21] MEDS ORDERED: MUPIROCIN OINT 2% 22 GM TUBE NS SCH (18:00)
--- NOTE | 2022-05-21 18:25 | NUR ---
ADULT SCHOOL COUNSELOR NOTE PATIENT DISCHARGE IN STABLE MEDICAL CONDITION, PATIENT WENT BACK TO [facility]. A/O X3-4, V/S TAKEN, STABLE AND RECORDED. IV WAS REMOVED. NAME ARM BAND REMOVED. EXTERNAL SWITCHMAN SUPERVISOR REMOVED AND RETURNED TO TELE DESK. SKIN ASSESSMENT NOT DONE, PATIENT REFUSED. ALL BELONGINGS CHECKED AND BELONGING LIST SIGNED. HEALTH TEACHING AND DISCHARGE INSTRUCTIONS GIVEN TO PATIENT AND NURSE AT [facility]., VERBALIZED UNDERSTANDING. REPORT GIVEN TO JORGE AT 17:45 ([phone]). INSTRUCTED PATIENT TO MAKE APPOINTMENT AND FOLLOW UP WITH HIS DOCTOR WITHIN 1 WEEK. DISCUSSED MEDICATIONS WITH PATIENT. INSTRUCTED PATIENT IN CASE OF EMERGENCY TO CALL 911 OR GO TO THE NEAREST ER. PATIENT LEFT UNIT VIA GURNEY WITH NO SIGN OF DISTRESS, ACCOMPANIED BY BID WRITER. CHARGE NURSE AWARE OF DISCHARGED. Addendum: 05/21/22 at 1834 by Nisa Rao RN PATIENT LEFT WITH HIS LIFE-VEST, IT WAS PLACED ON A BAG, NURSE AT FACILITY WAS INFORMED OF MALFUNCTIONING AND TO CONTACT THE LIFE-VEST [employer].
== END 2022-05-21 18:30 | DRG 315 ==
LOC: ER 05:24 → TELE 09:59
PROVIDERS: ADMIT Nurse Practitioner Family; ATTEND Internal Medicine
DX: T82.118A Breakdown (mechanical) of other cardiac electronic device, initial encounter (principal); I50.22 Chronic systolic (congestive) heart failure; I11.0 Hypertensive heart disease with heart failure; I48.91 Unspecified atrial fibrillation; Y71.2 Prosthetic and other implants, materials and accessory cardiovascular devices associated with adverse incidents; I25.10 Atherosclerotic heart disease of native coronary artery without angina pectoris; I25.2 Old myocardial infarction; E11.9 Type 2 diabetes mellitus without complications; L89.95 Pressure ulcer of unspecified site, unstageable; D64.9 Anemia, unspecified; E78.5 Hyperlipidemia, unspecified; R32 Unspecified urinary incontinence; M62.50 Muscle wasting and atrophy, not elsewhere classified, unspecified site; Z95.5 Presence of coronary angioplasty implant and graft; Z79.82 Long term (current) use of aspirin; Z79.01 Long term (current) use of anticoagulants; Z79.02 Long term (current) use of antithrombotics/antiplatelets; Z85.46 Personal history of malignant neoplasm of prostate; Z79.899 Other long term (current) drug therapy; Y92.129 Unspecified place in nursing home as the place of occurrence of the external cause; R26.9 Unspecified abnormalities of gait and mobility; Z86.16 Personal history of COVID-19
CPT/HCPCS: 36415; 71045-TC; 80048-TC; 83735-TC; 84100-TC; 84484-TC; 85025-TC; 87081-TC; C9803; G0378